=== PATIENT | male | born 1955 | race Caucasian/White ===

== ENCOUNTER 2018-03-29 07:08 | Inpatient (IN) ==
[2018-03-23 17:50] LABS: Appearance,Urine HAZY; Bilirubin,Urine NEG (NEG); Color,Urine YELLOW; Glucose,Urine (UA) NEGATIVE (NEG); Leukocyte Esterase,Urine NEG /uL (NEG); Protein,Urine NEG (NEG); Specific Gravity,Urine 1.014 (1.000-1.035); Urine Blood NEG mg/dL (<0.03); Urobilinogen,Urine NEG (NEG)
[2018-03-23 18:37] LABS: Basophils # (Auto) 0.1 K/mcL (0.0-0.3); Basophils % (Auto) 1.3 % (0.0-2.0); Eosinophils # (Auto) 0.2 K/mcL (0.0-0.7); Eosinophils % (Auto) 1.9 % (0.0-7.0); Granulocytes % (Auto) 69.3 % (38.0-78.0); Lymphocytes # (Auto) 2.3 K/mcL (1.5-4.8); Lymphocytes % (Auto) 20.8 % (15.5-49.0); Mean Cell Volume 79.9 fL (80.0-100.0); Mean Corpuscular HGB Conc 32.8 g/dL (31.0-36.0); Mean Corpuscular Hemoglobin 26.2 pg (26.0-34.0); Monocytes # (Auto) 0.7 K/mcL (0.1-0.9); Monocytes % (Auto) 6.7 % (1.0-12.0); Platelet Count 460 K/mcL (140-440); RBC 4.97 M/mcL (4.50-5.90); Red Cell Distribution Width 13.8 % (11.5-14.5)
[2018-03-23 18:48] LABS: Blood Urea Nitrogen 9 mg/dl (8-23)
[~2018-03-29 07:08] MED LIST: ACETAMINOPHEN 500 MG TABLET PO SCH; CELECOXIB 200 MG CAPSULE PO SCH; PREGABALIN 75 MG CAPSULE PO SCH; ceFAZolin 1 GM VIAL IV SCH; oxyCODONE 10 MG TAB.ER.12H PO SCH
[2018-03-29] MEDS ORDERED: 0.9 % SODIUM CHLORIDE 9 ML, KETOROLAC 30 MG, ROPIVACAINE HCL/PF 49.5 ML, EPINEPHrine 0.... IJ ONE (07:37)
[2018-03-29] MEDS ORDERED: GENTAMICIN SULFATE 800 MG/20 ML VIAL IR ONE (07:37)
[2018-03-29] MEDS ORDERED: ONDANSETRON 4 MG/2 ML VIAL IV ONE (09:25)
[2018-03-29] MEDS ORDERED: LIDOCAINE HCL/PF 100 MG/5 ML SYRINGE IV ONE (09:25)
[2018-03-29] MEDS ORDERED: EPINEPHrine 1 MG/10 ML (1:10,000) SYRINGE IV ONE (09:25)
[2018-03-29] MEDS ORDERED: DEXAMETHASONE 10 MG/ML VIAL IV ONE (09:25)
[2018-03-29] MEDS ORDERED: MIDAZOLAM 5 MG/5 ML VIAL IV ONE (09:25)
[2018-03-29] MEDS ORDERED: PROPOFOL 200 MG/20 ML VIAL IV ONE (09:25)
[2018-03-29] MEDS ORDERED: PHENYLEPHRINE 10 MG/ML VIAL IV ONE (09:25)
[2018-03-29] MEDS ORDERED: TRANEXAMIC ACID 1,000 MG/10 ML VIAL IV ONE (09:25)
[2018-03-29] MEDS ORDERED: ONDANSETRON 4 MG/2 ML VIAL IV PRN ×2 (10:12→10:43)
[2018-03-29] MEDS ORDERED: BENZOCAINE/MENTHOL 1 LOZENGE PO PRN ×2 (10:12→10:43)
[2018-03-29] MEDS ORDERED: MEPERIDINE 25 MG/ML SYRINGE IV PRN (10:12)
[2018-03-29] MEDS ORDERED: KETOROLAC 30 MG/ML VIAL IV PRN (10:12)
[2018-03-29] MEDS ORDERED: IPRATROPIUM/ALBUTEROL 3 ML AMPUL.NEB NEB PRN (10:12)
[2018-03-29] MEDS ORDERED: LACTATED RINGERS 250 ML IV PRN (10:12)
[2018-03-29] MEDS ORDERED: NALOXONE HCL 0.4 MG/ML VIAL IV PRN (10:12)
[2018-03-29] MEDS ORDERED: fentaNYL 100 MCG/2 ML VIAL IV PRN (10:12)
[2018-03-29] MEDS ORDERED: METHOCARBAMOL 1,000 MG/10 ML VIAL IV PRN (10:12)
[2018-03-29] MEDS ORDERED: PROMETHAZINE 25 MG/ML VIAL IV PRN (10:12)
[2018-03-29] MEDS ORDERED: FLUMAZENIL 0.1 MG/ML ML IV PRN (10:12)
[2018-03-29] MEDS ORDERED: LACTATED RINGERS 1,000 ML IV SCH (10:15)
--- NOTE | 2018-03-29 10:37 | XRay Report ---
CLINICAL INFORMATION: Right total hip COMPARISON: None. FINDINGS: Intraoperative film taken for measurement shows incomplete placement of right total hip prostheses. The prosthetic femoral head is absent; however the acetabular prostheses and femoral stem or template appear to be near anatomically aligned. No osseous abnormality IMPRESSION: Negative Interpreted and Authenticated by: Mynor David 03/29/18
[2018-03-29] MEDS ORDERED: traMADol 50 MG TABLET PO PRN (10:40)
[2018-03-29] MEDS ORDERED: NAPROXEN 500 MG TABLET PO PRN (10:40)
--- NOTE | 2018-03-29 10:40 | Brief Operative Note ---
Date of procedure: 03/29/18 Pre-op diagnosis: right hip djd severe Post-op diagnosis: same Procedure: right fauzia Grafts/Implants: Yes Anesthesia: RODGERA Surgeon: Papito Dumont Direct Service Professional: Melo Negro Estimated blood loss (cc): 100 Specimens Removed/Pathology: none sent Condition: stable Disposition: PACU
[2018-03-29] MEDS ORDERED: FLEETS ADULT ENEMA PR PRN (10:43)
[2018-03-29] MEDS ORDERED: TRANEXAMIC ACID 1,000 MG/10 ML VIAL IV SCH (10:43)
[2018-03-29] MEDS ORDERED: POLYETHYLENE GLYCOL 3350 17 GM PACKET PO PRN (10:43)
[2018-03-29] MEDS ORDERED: HYDROmorphone 2 MG/ML VIAL IV PRN (10:43)
[2018-03-29] MEDS ORDERED: MAGNESIUM HYDROXIDE 30 ML ORAL.SUSP PO PRN (10:43)
[2018-03-29] MEDS ORDERED: BISACODYL 10 MG SUPP.RECT PR PRN (10:43)
[2018-03-29] MEDS ORDERED: KETOROLAC 15 MG/ML VIAL IV PRN (10:43)
[2018-03-29] MEDS ORDERED: ACETAMINOPHEN 325 MG TABLET PO PRN (10:43)
[2018-03-29] MEDS ORDERED: ALBUTEROL SULFATE 1 PUFF INHALER INH PRN (11:15)
--- NOTE | 2018-03-29 11:35 | Operative Note ---
DATE OF OPERATION: 03/29/2018 PREOPERATIVE DIAGNOSIS: Right hip degenerative arthritis. POSTOPERATIVE DIAGNOSIS: Right hip degenerative arthritis. PROCEDURE: Right total hip arthroplasty using cementless components. SURGEON: Papito Dumont MD SKIP MINER: Melo Negro PA-C ANESTHESIA: General LMA anesthesia. COMPLICATIONS: None. IMPLANTS: A size 54 cup with a 35 mm screw with a non-hooded liner, 36 mm ball, +5 neck length on a ceramic ball and a size 5 stem. X-rays in surgery were taken. ESTIMATED BLOOD LOSS: 100 mL DESCRIPTION OF PROCEDURE: The patient was brought to the operating room and put to sleep with general LMA anesthesia. Once asleep, the patient had the right hip sterilely prepped and draped in a left lateral position. Timeout was performed. We confirmed the right hip to be the operative site. Once this was done, we then made a superior approach to the hip, dislocated the hip and made our neck cut at 32 mm in length. We then reamed up the acetabulum to the size of 54 and implanted a 54 cup with a 35 mm screw with a non-hooded liner. The stem was broached up to a size 5 stem and then we took x-ray. Once the x-ray confirmed position, it was slightly longer on the right, so we countersunk the stem so the lateral cortex abutted the implant. Once done, we then placed the real components and we retrialed. It was a little too loose with a 2.5 plus neck length. A 5 mm was very stable up to 90 degrees. Leg lengths seemed to be equal on the table at that point. Once this was done, we then implanted a +5 ceramic 36 mm head. The wound was closed with Stratafix for the fascial layer. Capsule was closed with #2 Ethibond and the skin was closed with adhesive closure. There was no complication. The patient tolerated this well. RBH:[email or web address] Job ID: [id number] Doc ID: [id number] Papito Dumont MD
[2018-03-29] MEDS: 0.45 % SODIUM CHLORIDE 1,000 ML IV SCH (12:03)
--- NOTE | 2018-03-29 12:40 | XRay Report ---
CLINICAL INFORMATION: Postop total hip prostheses COMPARISON: None. FINDINGS: Right total hip prosthesis in place. There appears to be slight excess in lateral canting and anteversion of the acetabular component. Femoral component is anatomically aligned. No osseous abnormality. Periarticular gas and soft tissue swelling seen - as expected. Both SI and left hip joints are unremarkable. IMPRESSION: Right total hip prostheses - as described Interpreted and Authenticated by: Mynor David 03/29/18
[2018-03-29] MEDS: 0.9 % SODIUM CHLORIDE 10 ML SYRINGE IV SCH ×2 (14:06→23:52)
[2018-03-29] MEDS: ceFAZolin 1 GM VIAL IV SCH (17:08)
[2018-03-29] MEDS: hydrOXYzine 25 MG TABLET PO SCH ×2 (17:08→21:04)
[2018-03-29] MEDS: HYDROcodone/APAP 10/325MG TABLET PO PRN (20:47)
[2018-03-29] MEDS ORDERED: AMITRIPTYLINE 25 MG TABLET PO SCH (21:00)
[2018-03-29] MEDS ORDERED: SENNOSIDES 1 TABLET PO SCH (21:00)
[2018-03-29] MEDS ORDERED: TEMAZEPAM 15 MG CAPSULE PO PRN (21:00)
[2018-03-29] MEDS ORDERED: NIACIN 500 MG PO SCH (21:00)
[2018-03-29] MEDS: SUCRALFATE 1 GM TABLET PO SCH (21:04)
[2018-03-29] MEDS: ASPIRIN 325 MG ENTERIC COATED TABLET PO SCH (21:05)
[2018-03-29] MEDS: buPROPion 150 MG TAB.SR.12H PO SCH (21:05)
[2018-03-29] MEDS: DOCUSATE SODIUM 100 MG CAPSULE PO SCH (21:05)
[2018-03-29] MEDS: NYSTATIN 100000 UNIT/GM TOPICAL SCH (23:51)
[2018-03-30] MEDS: 0.45 % SODIUM CHLORIDE 1,000 ML IV SCH ×2 (02:05→09:14)
[2018-03-30] MEDS: ceFAZolin 1 GM VIAL IV SCH (03:15)
[2018-03-30] MEDS: 0.9 % SODIUM CHLORIDE 10 ML SYRINGE IV SCH ×2 (05:46→15:30)
[2018-03-30] MEDS: HYDROcodone/APAP 10/325MG TABLET PO PRN ×2 (07:18→12:49)
[2018-03-30] MEDS ORDERED: OMEPRAZOLE 20 MG CAPSULE PO SCH (07:30)
--- NOTE | 2018-03-30 07:51 | Orthopedic Progress Note ---
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 Chief Complaint: [Pt is stable this morning on post operative day 2 without any significant concerns or complaints. Patients vital signs have remained stable. Patients dressing is dry and is grossly instact from a neurovascular and motor standpoint. Patients 10 point ROS is otherwise negative. ] Objective Vital signs: Vital Signs Temp Pulse Resp BP Pulse Ox 03/30/18 07:40 98.6 F 18 93/53 92 03/30/18 04:00 98.3 F 74 20 113/70 95 03/30/18 02:00 94 03/30/18 00:00 98.0 F 86 24 H 119/66 96 03/29/18 20:00 95 03/29/18 19:09 97.8 F 16 93/79 93 03/29/18 18:00 95 03/29/18 16:00 97.6 F 98 H 18 99/72 97 03/29/18 14:50 97.2 F 14 95/64 99 03/29/18 13:46 117/77 99 03/29/18 13:16 112/75 100 03/29/18 13:15 93 H 16 117/80 100 03/29/18 13:05 87/59 03/29/18 12:48 87/59 100 03/29/18 12:18 98 03/29/18 12:01 144/83 97 03/29/18 11:46 138/83 97 03/29/18 11:40 97.6 F 79 18 151/91 100 03/29/18 11:25 74 15 157/91 100 03/29/18 11:15 75 15 162/91 100 03/29/18 11:05 72 15 119/74 100 03/29/18 11:00 72 16 137/71 100 03/29/18 10:55 74 17 76/49 100 03/29/18 10:50 97.6 F 74 17 80/59 100 03/29/18 08:00 100 Intake and Output 03/29/18 03/30/18 03/30/18 21:59 05:59 13:59 Intake Total 1000 / 1000 1600 / 1600 Output Total 350 / 350 675 / 675 Balance 1000 / 1000 1250 / 1250 -675 / -675 Intake: IV 1000 / 1000 Sodium Chloride 0.45% 1,000 ml 1000 / 1000 @ 100 mls/hr IV .Q10H TERI Rx#: [id number] Oral 1000 / 1000 600 / 600 Output: Void Amount 350 / 350 675 / 675 Other: Meal Dinner Percent of Meal Consumed 100% Feeding Ability Independent Urine Color Straw # Voids 1 Weight 116 lb 8 oz Intake & Output: Intake & Output 03/29/18 03/30/18 03/30/18 21:59 05:59 13:59 Intake Total 1000 / 1000 1600 / 1600 Output Total 350 / 350 675 / 675 Balance 1000 / 1000 1250 / 1250 -675 / -675 Weight 116 lb 8 oz Intake: IV 1000 / 1000 Sodium Chloride 0.45% 1,000 ml 1000 / 1000 @ 100 mls/hr IV .Q10H TERI Rx#: [id number] Oral 1000 / 1000 600 / 600 Output: Void Amount 350 / 350 675 / 675 Other: Meal Dinner Percent of Meal Consumed 100% Feeding Ability Independent Urine Color Straw # Voids 1 Incision: Yes healing Incision clean and dry: Yes Dressing: Yes clean, Yes dry Weight bearing status: full Neurological exam IM: Yes motor sensory intact, Yes neurovascular intact Extremities exam IM: Yes Foot pink and warm, Yes neurovascular intact - Labs CBC & BMP: 03/30/18 04:53 03/23/18 15:56 Labs: Orthopedic Labs 03/23/18 15:56 PT 14.2 INR 1.1 APTT 41 H 03/30/18 03/23/18 04:53 15:57 Hgb 13.0 L Hct 24.1 L 39.7 L Assessment and Plan (1) Hx of total hip arthroplasty The patient has been educated regarding dressing care, Physical Therapy recommendations, home exercises, restrictions, and follow up appointments. The patient has had all necessary DME prescribed. The patient has remained relatively stable during their hospital course. Leave Dermabond patch intact until followup Status: Acute
--- NOTE | 2018-03-30 07:54 | Discharge Summary ---
Ortho Discharge - [facility] - Patient Instructions Diet: Regular Diet Activity: activity as tolerated, weight bearing as tolerated Total Hip Protocol: Follow activity instructions as provided by Physical Therapy. Dressing Care: May shower in 2 days - Problem Maintenance (1) Hx of total hip arthroplasty Status: Acute - Follow Up Plan Follow Up Appointments: Melo Negro PA-C [Physician Supervisor [facility]] - 04/13/18 10:40 am Disposition: Home, Self-Care Prognosis: Good Rehab Potential: Good I certify that the patient requires SNF services: No Overall status at discharge: patient is progressing back to baseline - Orders For Discharge Prescriptions: Aspirin [Ecotrin] 325 mg PO BID #60 tab.ec Docusate Sodium [Colace] 100 mg PO BID #60 cap HYDROcodone/APAP 10/325MG [[place] 10-325Mg] 1 - 2 tab PO Q4HP PRN #75 tab PRN Reason: Pain Level 3-6
[2018-03-30] MEDS ORDERED: OLANZapine 5 MG TABLET PO SCH (09:00)
[2018-03-30] MEDS: buPROPion 150 MG TAB.SR.12H PO SCH (09:14)
[2018-03-30] MEDS: DOCUSATE SODIUM 100 MG CAPSULE PO SCH (09:14)
[2018-03-30] MEDS: SUCRALFATE 1 GM TABLET PO SCH (09:14)
[2018-03-30] MEDS: ASPIRIN 325 MG ENTERIC COATED TABLET PO SCH (09:14)
[2018-03-30] MEDS: hydrOXYzine 25 MG TABLET PO SCH ×2 (09:14→15:30)
[2018-03-30] MEDS: NYSTATIN 100000 UNIT/GM TOPICAL SCH (09:16)
== END 2018-03-30 15:05 | disposition home or self-care (01) | DRG 470 ==
LOC: MEDSUR 07:08
PROVIDERS: ADMIT Orthopaedic Surgery; ATTEND Orthopaedic Surgery